=== PATIENT | male | born 1995 | race Caucasian/White ===

== ENCOUNTER 2025-02-02 07:40 | Day surgery (SDC) | payer BC ==
[2025-01-28 09:45] VITALS: BP 151/103
[~2025-02-02] VITALS: Ht 180.3 cm; Wt 119.0 kg
[~2025-02-02 07:40] MED LIST: CEFAZOLIN SODIUM 2 GM/20 ML SYR IV SCH; CYCLOBENZAPRINE10 MG PO; IBLOOD GLUCOSE TEST STRIP 1 EA TEST VI PRN; IBUPROFEN800 MG PO; LACTATED RINGER'S 1,000 ML IV SCH; LIDOCAINE 1% W/ EPI 1:100,000 20 ML MDV ONE; LIDOCAINE HCL 1% 5 ML SDV INJ ONE; NORCO 5-325 TA1 EACH PO
[2025-02-02 08:14] VITALS: BP 157/96
[2025-02-02] MEDS ORDERED: OXYMETAZOLINE HCL 30 ML BTL NAS SCH (08:30)
[2025-02-02] MEDS ORDERED: GLYCOPYRROLATE 1 MG/5 ML MDV ONE (09:29)
[2025-02-02] MEDS ORDERED: KETAMINE in NS 50 MG/5 ML SYR ONE (09:30)
[2025-02-02] MEDS ORDERED: DEXAMETHASONE SOD PHOS 4 MG/ML VIAL ONE (09:57)
[2025-02-02] MEDS ORDERED: ACETAMINOPHEN 1,000 MG/100 ML VIAL ONE (09:58)
[2025-02-02] MEDS ORDERED: KETOROLAC TROMETHAMINE 30 MG/ML VIAL ONE (10:06)
--- NOTE | 2025-02-02 11:06 | NUR ---
02/02/25 1106 Tisha Arias PATIENT WAKES SUDDENLY AND REACHES FOR HIS FACE. AIRWAY IS REMOVED. PATIENT TOLERATES THAT WELL. HE DENIES PAIN. OXYGEN IS REMOVED. HOB IS ELEVATED.
[2025-02-02 11:20] VITALS: BP 118/71
--- NOTE | 2025-02-02 11:30 | OR ---
[facility] [address], [place] [address] Signed DATE OF OPERATION: 02/02/2025 SURGEON: Enzo Roth MD PREOPERATIVE DIAGNOSES: Nasal obstruction due to septal deformity and inferior turbinate hypertrophy. POSTOPERATIVE DIAGNOSES: Nasal obstruction due to septal deformity and inferior turbinate hypertrophy. PROCEDURE: Septoplasty cautery bilateral inferior turbinates. ANESTHESIA: General LMA, GERALD, Becky. PREOP HISTORY: Richie is a 29-year-old young man with chronic nasal obstruction, unresponsive to appropriate medications. Office exam has shown a sick septal deformity blocking on the right inferior turbinate hypertrophy. He is taken to the operating for the above-mentioned procedures. OPERATIVE PROCEDURE AND FINDINGS: After informed consent, the patient was taken to the operating room, placed in the supine position where general LMA anesthesia was induced. The patient and procedure were verified. The patient received preoperative intranasal oxymetazoline, intravenous Ancef. Headlight speculum exam showed a septal deformity blocking on the right. The septal mucosa was injected with 1% lidocaine with epi. Septal deformity was corrected with the Nathan speculum reduction airway was markedly improved. The left inferior turbinate was then cauterized with a long handle needle point cautery. Multiple transmucosal passes on the medial and inferior surface starting anteriorly extending all the way back posteriorly. Excellent shrinkage of the turbinate was obtained. Improvement in the nasal airway. The same procedure on the right inferior turbinate. Hemostasis was verified. Packing was then placed, one piece of Merocel each side, trimmed, coated with Neosporin, tied anteriorly over a pad. The pharynx was suctioned clear of blood secretions. The patient was then awakened, extubated, transported to recovery room in good condition. No complications. BLOOD LOSS: Electronically Signed By: ENZO ROTH MD 02/02/25 1130 PATIENT NAME: CHRISTIANO CMDONALDRUTHY Pollard OPERATIVE REPORT DATE OF : [birth year] REPORT #: [id number] PHYSICIAN: ENZO ROTH MD PCP: NOHEMI VERA MD REPORT IS CONFIDENTIAL AND NOT TO BE RELEASED WITHOUT AUTHORIZATION [facility] [address] [place] [id number] Signed Minimal. SPECIMENS: None. DRAINS: None. PACKING: One piece of Merocel each nostril. Enzo Roth MD GC/MODL /[id number] Copies: ~ Electronically Signed By: ENZO ROTH MD 02/02/25 1130 PATIENT NAME: TAMARAANTOINETTECARTER Pollard OPERATIVE REPORT DATE OF : [birth year] REPORT #: [id number] PHYSICIAN: ENZO ROTH MD PCP: NOHEMI VERA MD REPORT IS CONFIDENTIAL AND NOT TO BE RELEASED WITHOUT AUTHORIZATION
[2025-02-02] MEDS ORDERED: HYDROCODON-ACE1 EA10 PO (12:18)
[2025-02-02] MEDS ORDERED: CEPHALEXIN500 M1 PO (12:18)
[2025-02-02 12:25] VITALS: BP 113/71
--- NOTE | 2025-02-02 15:49 | NUR ---
1225: VS CHECKED. DENIES PAIN. TOLERATED WATER, APPLESAUCE, AND PUDDING. 1230: DISCHARGE INSTRUCTIONS GIVEN TO PATIENT AND . PATIENT ASSISTED OOB AND TO WALK AROUND ROOM. GAIT STEADY. PATIENT GETTING DRESSED WITH ASSISTANCE FROM . 1238: IV DC'D WNL. TIP INTACT. DRESSING APPLIED. PATIENT DISCHARGED TO HOME VIA WHEELCHAIR WITH .
[2025-02-03] MEDS ORDERED: HYDROXYZINE HCL25 MG PO (00:49)
== END 2025-02-02 12:38 | disposition home or self-care (01) ==
LOC: DS 07:40
PROVIDERS: ATTEND Otolaryngology
PROC: 09SM0ZZ Reposition Nasal Septum, Open Approach (ICD-10-PCS; principal; 2025-02-02 09:30)
DX: J34.2 Deviated nasal septum (principal); J34.3 Hypertrophy of nasal turbinates; J34.89 Other specified disorders of nose and nasal sinuses
CPT/HCPCS: 00160; J0131; J0690; J1100; J1885; J2405; J2704; J3010; J3490; J7121

== ENCOUNTER 2025-02-02 20:13 | Emergency (ER) | payer BC ==
[~2025-02-02] VITALS: Ht 180.3 cm; Wt 117.0 kg
[~2025-02-02 20:13] MED LIST changes: -CEFAZOLIN SODIUM 2 GM/20 ML SYR IV SCH; +CEPHALEXIN500 M1 PO; +HYDROCODON-ACE1 EA10 PO; -IBLOOD GLUCOSE TEST STRIP 1 EA TEST VI PRN; -LACTATED RINGER'S 1,000 ML IV SCH; -LIDOCAINE 1% W/ EPI 1:100,000 20 ML MDV ONE; -LIDOCAINE HCL 1% 5 ML SDV INJ ONE
[2025-02-02] MEDS ORDERED: FAMOTIDINE 20 MG/ 2 ML VIAL IV ONE (21:45)
[2025-02-02] MEDS ORDERED: LACTATED RINGER'S 1,000 ML IV ONE (21:45)
[2025-02-02] MEDS ORDERED: TRANEXAMIC ACID IN NACL,ISO-OS 1,000 MG/100 ML PIGGYBACK IV ONE (21:45)
[2025-02-02 22:01] LABS: BASOPHILS 0.1 % (0.2-1.2); EOSINOPHILS 0 % (0.8-7.0); LYMPHOCYTES 5.7 % (21.8-53.1); MCH 30.0 PG (25.7-32.2); MCHC 33.3 g/dL (32.3-36.5); MCV 89.9 fL (79.0-92.2); MONOCYTES 2.0 % (5.3-12.2); NEUTROPHILS 91.9 % (34.0-67.9); RBC 4.94 M/uL (4.63-6.08)
[2025-02-02 22:17] LABS: ALT (SGPT) 46.0 U/L (14-59); AST (SGOT) 23.0 U/L (15-37); GLOMERULAR FILTRATION RATE,EST 93.0 mL/min (>60); PROTEIN, TOTAL 8.1 g/dL (6.4-8.2); UREA NITROGEN 11.0 mg/dL (7-18)
[2025-02-03] MEDS ORDERED: hydrOXYzine pamoate 50 MG HOME.PACK PO ONE (00:45)
[2025-02-03] MEDS ORDERED: HYDROXYZINE HCL25 MG PO (00:49)
[2025-02-03 01:09] VITALS: BP 155/93
== END 2025-02-03 01:09 | disposition home or self-care (01) ==
LOC: ED 20:13
PROVIDERS: Internal Medicine
DX: J95.830 Postprocedural hemorrhage of a respiratory system organ or structure following a respiratory system procedure (principal); F41.9 Anxiety disorder, unspecified; Z91.018 Allergy to other foods; Z91.048 Other nonmedicinal substance allergy status; Z79.2 Long term (current) use of antibiotics; Z79.899 Other long term (current) drug therapy
CPT/HCPCS: 36415; 71045; 80053; 85025; 96361; 96365; 96375; 99285-25; J2405; J7121

== ENCOUNTER 2025-02-13 15:53 | Emergency (ER) | payer BC ==
[~2025-02-13] VITALS: Ht 180.3 cm; Wt 117.0 kg
[~2025-02-13 15:53] MED LIST changes: +HYDROXYZINE HCL25 MG PO
--- OUTSIDE RECORDS SUMMARY | 2025-02-13 15:58 | XMS ---
PreManage Notification: FRANNIE MCDONALD Security Seam Finisher Events No recent Security Events currently on file CRITERIA MET - [facility] [place] - 2 Visits in 30 Days CARE PROVIDERS -Lakeisha- Dentist: Wrist Hemmer [facility] PHONE: [phone] Jon has no Care Guidelines for this patient. EMihir VISIT COUNT (12 MO.) 2 [facility] TOTAL 2 NOTE: Visits indicate total known visits. 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
[2025-02-13 16:20] LABS: BASOPHILS 0.7 % (0.2-1.2); EOSINOPHILS 1.4 % (0.8-7.0); LYMPHOCYTES 13.5 % (21.8-53.1); MCH 30.0 PG (25.7-32.2); MCHC 34.0 g/dL (32.3-36.5); MCV 88.4 fL (79.0-92.2); MONOCYTES 6.2 % (5.3-12.2); NEUTROPHILS 77.7 % (34.0-67.9); RBC 5.26 M/uL (4.63-6.08)
[2025-02-13 16:40] LABS: ALT (SGPT) 43.0 U/L (14-59); AST (SGOT) 24.0 U/L (15-37); GLOMERULAR FILTRATION RATE,EST 121.0 mL/min (>60); PROTEIN, TOTAL 8.7 g/dL (6.4-8.2); UREA NITROGEN 9.0 mg/dL (7-18)
[2025-02-13] MEDS ORDERED: KETOROLAC TROMETHAMINE 15 MG/ML VIAL IV ONE (17:15)
[2025-02-13] MEDS ORDERED: SODIUM CHLORIDE 0.9% 1,000 ML IV PRN (17:15)
[2025-02-13] MEDS ORDERED: METOCLOPRAMIDE HCL 10 MG/2 ML SDV IV ONE (17:15)
[2025-02-13 18:17] VITALS: BP 159/107
== END 2025-02-13 18:18 | disposition home or self-care (01) ==
LOC: ED 15:53
PROVIDERS: Emergency Medicine
DX: R51.9 Headache, unspecified (principal); Z91.018 Allergy to other foods; Z88.8 Allergy status to other drugs, medicaments and biological substances
CPT/HCPCS: 36415; 70487; 80053; 85025; 99284-25; J1200; J1885; J2765; J7030; Q9967